=== PATIENT | male | born 1950 | race Caucasian/White ===

== ENCOUNTER 2022-05-20 10:27 | Outpatient (CLI) | payer MEDICARE, SELFPAY ==
[2022-05-20 11:05] LABS: Albumin* 4.6 g/dL (3.3-5.0)
[2022-05-20 11:06] LABS: Chloride* 103 mmol/L (96-114); Potassium* 4.2 mmol/L (3.6-5.1); Sodium* 135 mmol/L (135-149)
[2022-05-20 11:08] LABS: Aspartate Amino Transferase* 33 U/L (12-35); Bilirubin Total* 0.9 mg/dL (0.1-1.5); Carbon Dioxide* 27 mmol/L (20-32); Cholesterol* 185 mg/dL (90-199); Creatinine* 0.6 mg/dL (0.5-1.5); Estimated Glomerular Filt Rate 103 ml/min
[2022-05-20 11:09] LABS: Alanine Aminotransferase* 27 U/L (4-50); Alkaline Phosphatase* 85 U/L (40-150); Blood Urea Nitrogen* 9 mg/dL (7-30); Calcium* 8.9 mg/dL (8.4-10.6); Glucose* 77 mg/dL (60-115); HDL Cholesterol* 65 mg/dL (>=40); LDL Cholesterol Calculated 105 mg/dL (<100); Triglycerides* 76 mg/dL (40-149)
== END 2022-05-20 10:28 | disposition home or self-care (01) ==
PROVIDERS: PCP Family Medicine; Visit Provider Family Medicine
DX: E03.9 Hypothyroidism, unspecified (principal); E78.5 Hyperlipidemia, unspecified; Z13.9 Encounter for screening, unspecified; Z12.5 Encounter for screening for malignant neoplasm of prostate
CPT/HCPCS: 80053; 80061; 84153; 84443

== ENCOUNTER 2023-05-25 08:01 | Outpatient (CLI) | payer MEDICARE, SELFPAY | END 2023-05-25 08:02 | disposition home or self-care (01) | LOC: NFLDREF 05-29 07:13 | PROVIDERS: PCP Family Medicine; Referring Provider Family Medicine; Visit Provider Family Medicine | DX: E78.5 Hyperlipidemia, unspecified (principal); E03.9 Hypothyroidism, unspecified; R79.89 Other specified abnormal findings of blood chemistry; Z12.5 Encounter for screening for malignant neoplasm of prostate | CPT/HCPCS: 80053; 80061; 82306; 84443; G0103 ==

== ENCOUNTER 2023-06-26 07:49 | Outpatient (CLI) | payer MEDICARE, SELFPAY ==
--- NOTE | 2023-06-26 09:07 | P.ANES_ITS ---
Anesthesia Charges Start Date/Time Anesthesia Start Date: 06/26/23 Anesthesia Start Time: 08:42 Stop Date/Time Anesthesia Stop Date: 06/26/23 Anesthesia Stop Time: 09:08 Summary Extremes of Age - Over 70 or under 1: DESIGN CHIEF
--- NOTE | 2023-06-26 09:22 | W.ANESCHARGE ---
Anesthesia Charges Start Date/Time Anesthesia Start Date: 06/26/23 Anesthesia Start Time: 08:42 Stop Date/Time Anesthesia Stop Date: 06/26/23 Anesthesia Stop Time: 09:08 Summary Extremes of Age - Over 70 or under 1: MDA
== END 2023-06-26 07:50 | disposition home or self-care (01) ==
PROVIDERS: PCP Family Medicine; Visit Provider Internal Medicine
DX: Z12.11 Encounter for screening for malignant neoplasm of colon (principal)
CPT/HCPCS: 00811; 00812; 45378; 99100; J2704

== ENCOUNTER 2023-09-10 14:50 | Outpatient (CLI) | payer MEDICARE, SELFPAY ==
--- NOTE | 2023-09-10 15:04 | W.PM.STED ---
Stress Test Note Date Date Seen: 09/10/23 Date of test: 09/10/23 Providers Primary care provider: Fabiano Henson Stress test physician: Karen Kraus Stress Test Note Stress test ordered: Stress Echo Indication for test: Elevated calcium CT score. Stress test medicine: None Results discussion: Resting EKG: Sinus rhythm, 66 beats per minute. Low-voltage QRS in aVL and V2. Flipped T-waves lead V1. Resting blood pressure: 130/74 Stress test: Patient was consented on the stress test ordered. Standard [place] protocol was followed for treadmill exercise stress echo. Patient exercised to 9 minutes 17 seconds achieving 10.7 Mets. He had a maximum heart rate of 148 beats per minute which was 119% of a calculated target heart rate of 124. He had a maximal blood pressure during the stress test of 150/80. His rate pressure product was 22,200. Exercise was terminated due to patient reaching exercise capacity. He had no chest symptoms, did not feel any significant shortness of breath. He had no arrhythmias, no evidence of any ischemia. Patient tolerated the procedure well. Await echo images to couple this for a full formal diagnostic. Impression: Subjectively negative, objectively negative EKG portion of this stress test. Follow up suggested: Patient was discharged in stable condition without any symptoms. Patient will await a phone call back from ordering physician, will contact the clinic if he has not heard from them early next week.
[2023-09-10 15:55] VITALS: BP 143/76; PULSE 87
== END 2023-09-10 14:51 | disposition home or self-care (01) ==
LOC: STRESS 14:50
PROVIDERS: PCP Family Medicine; Visit Provider Family Medicine
DX: R93.1 Abnormal findings on diagnostic imaging of heart and coronary circulation (principal); R06.09 Other forms of dyspnea
CPT/HCPCS: 93016; 93325; 93351

== ENCOUNTER 2024-05-14 09:14 | Outpatient (CLI) | payer MEDICARE, SELFPAY | END 2024-05-14 09:15 | disposition home or self-care (01) | PROVIDERS: PCP Family Medicine; Visit Provider Family Medicine | DX: R04.2 Hemoptysis (principal) | CPT/HCPCS: 85379; 85610; 85730 ==

== ENCOUNTER 2024-06-16 07:55 | Outpatient (CLI) | payer MEDICARE, SELFPAY | END 2024-06-16 07:56 | disposition home or self-care (01) | LOC: NFLDREF 06-22 01:05 | PROVIDERS: PCP Family Medicine; Referring Provider Family Medicine; Visit Provider Family Medicine | DX: E78.5 Hyperlipidemia, unspecified (principal); E03.9 Hypothyroidism, unspecified; Z12.5 Encounter for screening for malignant neoplasm of prostate | CPT/HCPCS: 80053; 80061; 84443; G0103 ==

== ENCOUNTER 2024-06-20 08:52 | Outpatient (CLI) | payer MEDICARE, SELFPAY | END 2024-06-20 08:53 | disposition home or self-care (01) | PROVIDERS: PCP Family Medicine; Visit Provider Family Medicine | DX: D64.9 Anemia, unspecified (principal) | CPT/HCPCS: 82607; 82728; 82746; 85045 ==

== ENCOUNTER 2024-08-15 07:33 | Outpatient (CLI) | payer MEDICARE, SELFPAY ==
--- NOTE | 2024-08-15 08:00 | CRLHL7_ITS ---
For Patients: As a result of the Century Cures Act, medical imaging exams and procedure reports are released immediately into your electronic medical record. You may view this report before your referring provider. If you have questions, please contact your health care provider. Indication: CONSOLIDATION FOUND ON CALCIUM SCORING IN 2023. HAD CXRS TO FOLLOW UP. STILL SEEING ABNORMALITIES. Technique: CT Chest 75CC ISOVUE 370 intravenous contrast Please note that all CT scans at this facility use dose modulation, iterative reconstruction, and/or weight-based dosing when appropriate to reduce radiation dose to as low as reasonably achievable. Comparison: Chest x-ray 08/08/2024, CT cardiac study 08/20/2023 Findings: Bronchiectasis in the right middle lobe is again noted along with mild chronic parenchymal densities. A few scattered ill-defined nodules are present adjacent to the bronchiectatic lung which are new compared to the prior study and measure up to 4.9 millimeters. There are new nodules within the right lower lobe which measures 6 millimeters and 6.5 millimeters. Mild increased scarring within the anterior lingula. No pleural effusion or pulmonary edema. Mild dependent atelectasis. No pneumothorax. No adenopathy. Upper abdomen unremarkable. Discogenic spurring, mild. No fracture. Impression: Chronic bronchiectasis within the right middle lobe with development of new adjacent ill-defined nodular densities measuring up to 4.9 millimeters along with new nodules within the right lower lobe measuring up to 6.5 millimeters. Pulmonary consultation recommended. Please note that all CT scans at this facility use dose modulation, iterative reconstruction, and/or weight-based dosing when appropriate to reduce radiation dose to as low as reasonably achievable. Dictated by Shubham Hall MD @ 08/15/2024 11:49:02 AM (Electronically Signed)
[2024-08-15 08:04] LABS: Creatinine* 0.6 mg/dL (0.5-1.5); Estimated Glomerular Filt Rate 101 ml/min
== END 2024-08-15 07:34 | disposition home or self-care (01) ==
LOC: CT 07:35
PROVIDERS: PCP Family Medicine; Visit Provider Family Medicine
DX: R93.89 Abnormal findings on diagnostic imaging of other specified body structures (principal); J47.9 Bronchiectasis, uncomplicated; R91.8 Other nonspecific abnormal finding of lung field
CPT/HCPCS: 36415; 71260; 82565; Q9967

== ENCOUNTER 2024-08-30 08:48 | Outpatient (CLI) | payer MEDICARE, SELFPAY | END 2024-08-30 08:49 | disposition home or self-care (01) | LOC: NFLDREF 09-01 21:35 | PROVIDERS: PCP Family Medicine; Referring Provider Family Medicine; Visit Provider Family Medicine | DX: Z11.1 Encounter for screening for respiratory tuberculosis (principal) | CPT/HCPCS: 86480 ==